=== PATIENT | female | born 1985 | race African-American/Black ===

== ENCOUNTER 2023-02-24 11:04 | Emergency (ER) | payer MEDICAID, SELFPAY ==
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
[2023-02-24 11:42] VITALS: BP 148/88; PULSE 76; RESP 19; TEMP 36.6; O2SAT 100; BMI 36.7
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
[2023-02-24 16:14] VITALS: BP 136/81; PULSE 74; RESP 18; O2SAT 100
== END 2023-02-24 16:15 | disposition home or self-care (01) ==
PROVIDERS: Emergency Provider Emergency Medicine; PCP Internal Medicine
DX: M48.02 Spinal stenosis, cervical region (principal); S16.1XXA Strain of muscle, fascia and tendon at neck level, initial encounter; V43.52XA Car driver injured in collision with other type car in traffic accident, initial encounter; M25.461 Effusion, right knee; M25.561 Pain in right knee; Y93.89 Activity, other specified; Y92.414 Local residential or business street as the place of occurrence of the external cause; Y99.0 Civilian activity done for income or pay
CPT/HCPCS: 72072; 72125; 73562; 99284

== ENCOUNTER 2024-03-01 15:33 | Outpatient (REF) | payer MEDICAID, SELFPAY ==
[2024-03-02 05:48] LABS: CT PCR NOT DETECTED (Not Detect.); NG PCR NOT DETECTED (Not Detect.)
[2024-03-02 11:11] LABS: Bacterial Vaginosis PCR POSITIVE (Negative); Candida Group PCR NOT DETECTED (Not Detect); Candida glab krusei PCR NOT DETECTED (Not Detect); Trichomonas vaginalis PCR NOT DETECTED (Not Detect)
== END 2024-03-01 15:34 | disposition home or self-care (01) ==
LOC: HO.CHCLNP 15:33
PROVIDERS: Visit Provider Internal Medicine
DX: N76.1 Subacute and chronic vaginitis (principal)
CPT/HCPCS: 0352U; 87491; 87591

== ENCOUNTER 2024-05-10 12:37 | Outpatient (REF) | payer MEDICAID, SELFPAY ==
[2024-05-10 16:15] LABS: MANUAL DIFF FLAG NO
[2024-05-10 16:32] LABS: Basophils Percent Auto 0.2 % (0-2); Eosinophils Absolute Auto 0.1 X10*3/uL (0.0-0.4); Eosinophils Percent Auto 1.1 % (0-4); Hematocrit 38.4 % (37.0-47.0); Hemoglobin 12.9 g/dl (12.0-16.0); Imm Gran Abs Auto 0.03 X10*3/uL (0.00-0.03); Imm Gran Pct Auto 0.3 % (0.0-0.4); Lymphocytes Absolute Auto 3.4 X10*3/uL (1.2-4.9); Lymphocytes Percent Auto 37.6 % (20-40); Mean Corpuscular HGB Conc 33.6 g/dl (31.0-35.0); Mean Corpuscular Hemoglobin 30.4 pg (27.0-33.0); Mean Corpuscular Volume 90.6 fL (80.0-98.0); Mean Platelet Volume 10.7 fL (9.4-12.3); Monocytes Absolute Auto 0.6 X10*3/uL (0.1-1.2); Monocytes Percent Auto 6.3 % (2-11); Neutrophils Absolute Auto 4.8 x10*3/uL (2.0-8.3); Neutrophils Percent Auto 54.5 % (45-73); Platelet Count 319 X10*3/uL (160-400); Red Blood Count 4.24 X10*6/uL (4.20-5.50); Red Cell Distribution Width 12.3 % (11.0-16.0); White Blood Count 8.9 X10*3/uL (4.8-10.8)
[2024-05-10 16:57] LABS: Alanine Aminotransferase 29 U/L (0-31); Alkaline Phosphatase 53 U/L (39-117); Anion Gap 7 (12-20); Aspartate Amino Transferase 24 U/L (5-31); Bilirubin Total 0.5 mg/dL (0.0-1.0); Blood Urea Nitrogen 8 mg/dL (9-16); Carbon Dioxide 26 mmol/L (22-29); Chloride 108 mmol/L (96-108); Estimated Glomerular Filt Rate > 60; Glucose Random 87 mg/dL (60-115); Iron 78 mcg/dL (30-160); Percent Iron Saturation 26 % (15-50); Potassium 3.9 mmol/L (3.3-5.1); Sodium 137 mmol/L (135-145); Total Iron Binding Capacity 301 mcg/dL (228-428); Unsaturated Iron Binding 223 ug/dL
[2024-05-10 17:05] LABS: Ferritin 208 ng/mL (10-122); Thyroid Stimulating Hormone 0.97 uIU/mL (0.32-4.0); Vitamin D 25-OH Total 53.5 ng/mL (>30)
[2024-05-10 17:19] LABS: Folate 11.8 ng/mL (> or = 4.0); Vitamin B12 719 pg/mL (200-900)
== END 2024-05-10 12:38 | disposition home or self-care (01) ==
LOC: HO.HHCL 12:37
PROVIDERS: Visit Provider Nurse Practitioner Psychiatric/Mental Health
DX: F90.0 Attention-deficit hyperactivity disorder, predominantly inattentive type (principal); F32.1 Major depressive disorder, single episode, moderate
CPT/HCPCS: 36415; 80053; 82306; 82607; 82728; 82746; 83540; 84443; 85025

== ENCOUNTER 2024-08-29 10:15 | Outpatient (REF) | payer MEDICAID, SELFPAY | END 2024-08-29 10:16 | disposition home or self-care (01) | LOC: HO.LNP 10:15 | PROVIDERS: Visit Provider Pediatrics | DX: Z01.419 Encounter for gynecological examination (general) (routine) without abnormal findings (principal) | CPT/HCPCS: 88175 ==

== ENCOUNTER 2024-08-29 10:34 | Outpatient (REF) | payer MEDICAID, SELFPAY ==
[2024-08-30 04:43] LABS: HIV AB/AG Nonreactive (Nonreactive); HIV Num 1 0.06 S/CO (0.00-0.99); ~HepC Num1 0.21 S/CO (0.00-0.79); ~Hepatitis C Antibody Nonreactive (Nonreactive)
== END 2024-08-29 10:35 | disposition home or self-care (01) ==
LOC: HO.CHCLDS 10:34
PROVIDERS: Visit Provider Pediatrics
DX: Z11.3 Encounter for screening for infections with a predominantly sexual mode of transmission (principal)
CPT/HCPCS: 36415; 86803; 87389; 88175

== ENCOUNTER 2024-08-29 15:05 | Outpatient (REF) | payer MEDICAID, SELFPAY ==
[2024-08-29 19:19] LABS: Bacterial Vaginosis PCR POSITIVE (Negative); Candida Group PCR NOT DETECTED (Not Detect); Candida glab krusei PCR NOT DETECTED (Not Detect); Trichomonas vaginalis PCR NOT DETECTED (Not Detect)
[2024-08-29 20:04] LABS: CT PCR NOT DETECTED (Not Detect.); NG PCR NOT DETECTED (Not Detect.)
== END 2024-08-29 15:06 | disposition home or self-care (01) ==
LOC: HO.CHCLNP 15:05
PROVIDERS: Visit Provider Pediatrics
DX: Z11.3 Encounter for screening for infections with a predominantly sexual mode of transmission (principal)
CPT/HCPCS: 81515; 87491; 87591

== ENCOUNTER 2024-09-12 15:25 | Outpatient (REF) | payer MEDICAID, SELFPAY ==
--- OUTSIDE RECORDS SUMMARY | 2024-09-12 17:22 | XMS_ITS | Encounter Summary ---
Author Organization [employer] Address [address] [facility] 7 [place] [address] Care Team Providers Care Surgical Assistant Name Role Phone Maryam Ojeda MD Primary Care Provider [phone]- [phone] Reason for Visit * Reason Onset Date Comments TB order 09/11/2024 Encounter Details Date Type Department Care Team (Late st Contact Info) Description 09/11/2024 Telephone [facility] MED[facility]INE [address] [place] [address] Maryam Ojeda MD [address] [place] [address] TB order Social History Tobacco Use Types Packs/Day Years Used Date Smoking Tobacco: Never Smokeless Tobacco: Never Depression Answer Date Recorded Patient Health Questionnaire-9 Score 9 02/01/2024 Patient Health Questionnaire-9 Score 9 02/01/2024 Last PHQ-9: Questionnaire Data Not on file 0 02/01/2024 Depression Answer Date Recorded Patient Health Questionnaire-2 Score 1 02/01/2024 Comments Unknown Sex and Gender Information Value Date Recorded Sex Assigned at Female 04/05/2022 10:18 AM EDT Legal Sex Female 10:18 AM EDT Gender Identity Female 04/05/2022 10:18 AM EDT Sexual Orientation Straight 04/05/2022 10 :18 AM EDT documented as of this encounter Miscellaneous Notes * Telephone Encounter - Felicia Renee RN - 09/11/2024 3:54 PM EDT T-spot ordered and patient notified to come into lab at her convince. * Telephone Encounter - Leonie Lygo - 09/11/2024 3:47 PM EDT Tc from pt requesting Tb test order. documented in this encounter Plan of Treatment Upcoming Encounters Date Type Department Care Team (Late st Contact Info) Description 12/06/2024 2:30 PM EDT Office Visit [facility] PEDS [address] [place] [address] Maryam Ojeda MD [address] [place] [address] Scheduled Orders Name Type Priority Associated Diagnoses Orde r Schedule T-SPOT??.TB Lab Routine Encounter for immunization Expected: 09/11/2024 (Approximate), Expires: 09/11/2025 documented as of this encounter Visit Diagnoses Diagnosis Encounter for immunization documented in this encounter Additional Health Concerns Assessment Noted Time PHQ-9 Depression Total Score: 9 02/01/20 24 10:39 AM EDT documented as of this encounter Care Teams Surgical Assistant Relationship Specialty Start Date End Date Maryam Ojeda MD [address] [place] [address] PCP - General Internal Medicine 07/06/13 documented as of this encounter
--- OUTSIDE RECORDS SUMMARY | 2024-09-12 17:22 | XMS_ITS | Encounter Summary ---
Author Organization [employer] Address [address] [place] [address] 7[address] [place] [address] Care Team Providers Care Reading Efficiency Course Director Name Role Phone Maryam Ojeda MD Primary Care Provider [phone]- [phone] Encounter Details Date Type Department Care Team (Late Contact Info) Description 04/16/2024 Orders Only [facility] MED & PEDS [address] [place], [place] [phone] Maryam Ojeda MD [address] [place] [address] Class 2 obesity due to excess calories without serious comorbidity with body mass index (BMI) of 38.0 to 38.9 in adult (Primary Dx) Social History Tobacco Use Types Packs/Day Years [...] AM EDT documented as of this encounter Plan of Treatment Upcoming Encounters Date Type Department Care Team (Late Contact Info) Description 12/06/2024 2:30 PM EDT Office Visit [facility] MED & PEDS [address] [place] [address] Maryam Ojeda MD [address] [place] [address] documented as of this encounter Visit Diagnoses Diagnosis Class 2 obesity due to excess calories without serious comorbidity with body mass index (BMI) of 38.0 to 38.9 in adult- Primary documented in this encounter Additional Health Concerns Assessment Noted Time PHQ-9 Depression Total Score: 9 02/01/20 24 10:39 AM EDT documented as of this encounter Care Teams Reading Efficiency Course Director Relationship Specialty Start Date End Date Maryam Ojeda MD [address] [place] [address] PCP - General Internal Medicine 07/06/13 documented as of this encounter
--- OUTSIDE RECORDS SUMMARY | 2024-09-12 17:22 | XMS_ITS | Encounter Summary ---
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) Social History Tobacco Use Types Packs/Day Years Used Date Smoking Tobacco: Never Assessed Comments Unknown Sex and Gender Information Value Date Recorded Sex Assigned at Female 04/05/2022 10:18 AM EDT Legal Sex Female 10:18 AM EDT Gender Identity Female 04/05/2022 10:18 AM EDT Sexual Orientation Straight 04/05/2022 10 :18 AM EDT documented as of this encounter Plan of Treatment Upcoming Encounters Date Type Department Care Team (Late Contact Info) Description 12/06/2024 2:30 PM EDT Office Visit [facility] PEDS [address] [place], [place] [phone] Maryam Ojeda MD [address] [place], [place] [phone] documented as of this encounter Visit Diagnoses Diagnosis Herpes simplex infection of genitourinary system- Primary documented in this encounter Care Teams Felt Tipping Machine Tender Relationship Specialty Start Date End Date Beauzile, Thevenin, MD [address] [place] [address] PCP - General Internal Medicine 07/06/13 documented as of this encounter
--- OUTSIDE RECORDS SUMMARY | 2024-09-12 17:22 | XMS_ITS | Encounter Summary ---
Author Organization [employer] Address [address] [place] [address] 7t [place] [address] Care Team Providers Care Driller'S Offsider Name Role Phone Maryam Ojeda MD Primary Care Provider [phone]- [phone] Reason for Visit * Reason Comments Med Refill Encounter Details Date Type Department Care Team (Late st Contact Info) Description 06/19/2024 Refill [facility]EDS [address] [place] [address] Sera Pandya MD [address] [place] [address] Class 2 obesity due to excess calories without serious comorbidity with body mass index (BMI) of 38.0 to 38.9 in adult Social History Tobacco Use Types Packs/Day Years [...] Description 12/06/2024 2:30 PM EDT Office Visit [facility] [address] [place] [address] Maryam Ojeda MD [address] [place] [address] documented as of this encounter Visit Diagnoses Diagnosis Class 2 obesity due to excess calories without serious comorbidity with body mass index (BMI) of 38.0 to 38.9 in adult documented in this encounter Additional Health Concerns Assessment Noted Time PHQ-9 Depression Total Score: 9 02/01/20 24 10:39 AM EDT documented as of this encounter Care Teams Driller'S Offsider Relationship Specialty Start Date End Date Maryam Ojeda MD [address] [place] [address] PCP - General Internal Medicine 07/06/13 documented as of this encounter
--- OUTSIDE RECORDS SUMMARY | 2024-09-12 17:22 | XMS_ITS | Encounter Summary ---
Author Organization [employer] Address [address] [place] [address] 7 [place] [address] Care Team Providers Care Training Instructor Name Role Phone Maryam Ojeda MD Primary Care Provider [phone]- [phone] Encounter Details Date Type Department Care Team ([facility] Contact Info) Description 06/19/2024 Orders Only [facility] MED & PEDS [address] [place] [address] Maryam Ojeda MD [address] [place] [address] Social History Tobacco Use Types Packs/Day Years [...] Upcoming Encounters Date Type Department Care Team ([facility] Contact Info) Description 12/06/2024 2:30 PM EDT Office Visit [facility] MED & PEDS [address] [place], [place] [phone] Maryam Ojeda MD [address] [place], [place] [phone] documented as of this encounter Visit Diagnoses Not on filedocumented in this encounter Additional Health Concerns Assessment Noted Time PHQ-9 Depression Total Score: 9 02/01/20 24 10:39 AM EDT documented as of this encounter Care Teams Training Instructor Relationship Specialty Start Date End Date Maryam Ojeda MD [address] [place] [address] [employer] [address] PCP - General Internal Medicine 07/06/13 documented as of this encounter
--- OUTSIDE RECORDS SUMMARY | 2024-09-12 17:22 | XMS_ITS | Encounter Summary ---
Author Organization [email or web address] Address [address] [place] [address] [address] [place] [address] Care Team Providers Care Electrical And Radio Aircraft Mechanic Name Role Phone Maryam Ojeda MD Primary Care Provider [phone]- [phone] Encounter Details Date Type Department Care Team ([facility] Contact Info) Description 10/20/2023 Telephone [facility] MEDICINE [address] [place], [place] [phone] Maryam Ojeda MD [address] [place], [place] [phone] Social History Tobacco Use Types Packs/Day Years Used Date Smoking Tobacco: Never Smokeless Tobacco: Never Comments Unknown Sex and Gender Information Value Date Recorded Sex Assigned at Female 04/05/2022 10:18 AM EDT Legal Sex Female 10:18 AM EDT Gender Identity Female 04/05/2022 10:18 AM EDT Sexual Orientation Straight 04/05/2022 10 :18 AM EDT documented as of this encounter Plan of Treatment Upcoming Encounters Date Type Department Care Team ([facility] Contact Info) Description 12/06/2024 2:30 PM EDT Office Visit [facility]EDS [address] [place], [place] [phone] Maryam Ojeda MD [address] [place], [place] [phone] documented as of this encounter Visit Diagnoses Not on filedocumented in this encounter Care Teams Electrical And Radio Aircraft Mechanic Relationship Specialty Start Date End Date Maryam Ojeda MD [address] [place] [address] PCP - General Internal Medicine 07/06/13 documented as of this encounter
--- OUTSIDE RECORDS SUMMARY | 2024-09-12 17:22 | XMS_ITS | Encounter Summary ---
Author Organization [employer] Address [address] [place] [address] Care Team Providers Care Die Polisher Name Role Phone Maryam Ojeda MD Primary Care Provider +1- [phone] Encounter Details Date Type Department Care Team ([facility] Contact Info) Description 03/25/2023 [facility] [employer] [address] [place], [place] [phone] Maryam Ojeda MD [address] [place] [address] Social History Tobacco Use Types Packs/Day Years [...] Upcoming Encounters Date Type Department Care Team ([facility] Contact Info) Description 12/06/2024 2:30 PM EDT Office Visit [facility] [address] [place], [place] [phone] Maryam Ojeda MD [address] [place], [place] [phone] documented as of this encounter Visit Diagnoses Not on filedocumented in this encounter Care Teams Die Polisher Relationship Specialty Start Date End Date Maryam Ojeda MD [address] [place] [address] PCP - General Internal Medicine 07/06/13 documented as of this encounter
--- OUTSIDE RECORDS SUMMARY | 2024-09-12 17:22 | XMS_ITS | Encounter Summary ---
Author Organization [employer] Address [address] [place] [address] [address] [place] [address] Care Team Providers Care Director Of Sustainability Programs Name Role Phone Maryam Ojeda MD Primary Care Provider +1- [phone] Reason for Visit * Reason Comments Med Refill Encounter Details Date Type Department Care Team (Late Contact Info) Description 10/19/2023 Refill [facility] MEDICINE [address] [place], [place] [phone] Maryam Ojeda MD [address] [place] [address] Herpes simplex infection of genitourinary system Social History Tobacco Use Types Packs/Day Years [...] Description 12/06/2024 2:30 PM EDT Office Visit [facility]S [address] [place], [place] [phone] Maryam Ojeda MD [address] [place] [address] documented as of this encounter Visit Diagnoses Diagnosis Herpes simplex infection of genitourinary system documented in this encounter Care Teams Director Of Sustainability Programs Relationship Specialty Start Date End Date Maryam Ojeda MD [address] [place] [address] PCP - General Internal Medicine 07/06/13 documented as of this encounter
--- OUTSIDE RECORDS SUMMARY | 2024-09-12 17:22 | XMS_ITS | Clinical Summary ---
Author Organization [employer] Address [address] [place] [address] 7[address] [place] [address] Care Team Providers Care Figure Refinisher And Repairer Name Role Phone Maryam Ojeda MD Primary Care Provider [phone] Allergies No known active allergies Medications Fluocinolone Acetonide Scalp 0.01 % oilIndications:Se borrheic dermatitis, unspecified APPLY THIN LAYER TO DAMP SCALP MASSAGE WELL + COVER. LEAVE ON FOR 4 HOURS OR OVERNIGHT THEN WASH OFF 118.28 mL 6 04/01/20 23 Active acetaminophen (Tylenol) 500 MG tablet Take 2 tablets (1,000 mg) by mouth every 6 (six) hours if needed for moderate pain or fever for up to 25 doses. 40 tablet 08/17/19 24 Active ibuprofen 400 MG tablet Take 1 tablet (400 mg) by mouth every 6 (six) hours if needed for moderate pain or fever for up to 30 doses. 30 tablet 08/17/19 24 Active Spacer/Aero-Holdi ng Chambers (OptiChamber Elena) misc 1 each every 4 (four) hours if needed (asthma). 1 each 08/17/19 24 Active albuterol (Ventolin HFA) 108 (90 Base) MCG/ACT inhaler INHALE 2 PUFFS EVERY 4 (FOUR) HOURS IF NEEDED FOR WHEEZING OR SHORTNESS OF BREATH. 18 g 1 10/14/19 24 Active ketoconazole (NIZOral) 2 % shampooIndication s:Seborrheic dermatitis, unspecified LATHER ONTO AFFECTED AREA(S), LEAVE IN PLACE FOR 5 MINUTES, THEN RINSE OFF WITH WATER- USE DAILY 120 mL 3 03/01/20 24 Active valACYclovir (Valtrex) 500 MG tabletIndications :Herpes simplex infection of genitourinary system TAKE 1 TABLET BY MOUTH EVERY DAY 30 tablet 1 05/07/20 24 Active amoxicillin-clavu lanate (Augmentin) 875-125 MG tablet Take 1 tablet by mouth 2 times daily. 14 tablet 05/10/20 24 Active beclomethasone (Beconase-AQ) 42 MCG/SPRAY nasal spray Administer 2 sprays into each nostril 2 times daily. Dose is for each nostril. 25 g 3 05/10/20 24 025 Active azelastine (Astelin) 0.1 % nasal spray Administer 1 spray into each nostril 2 times daily. Use in each nostril as directed 30 mL 12 05/10/20 24 Active mometasone (Nasonex) 50 MCG/ACT nasal spray Administer 2 sprays into each nostril Once per day. 17 g 05/10/20 24 025 Active Semaglutide-Weigh t Management (Wegovy) 1 MG/0.5ML solution auto-injectorIndi cations:Class 2 obesity due to excess calories without serious comorbidity with body mass index (BMI) of 38.0 to 38.9 in adult INJECT ONE PEN (=1 MG) SUBCUTANEOUSLY ONCE A WEEK 2 mL 05/16/20 24 Active Zepbound 2.5 MG/0.5ML solution auto-injector INJECT 0.5ML'S (2.5MG'S) SUBCUTANEOUSLY ONCE PER WEEK 2 mL 1 08/09/19 25 Active metroNIDAZOLE (Flagyl) 500 MG tablet Take 1 tablet (500 mg) by mouth 2 times daily for 7 days. 14 tablet 09/03/19 25 025 Active Problems Problem Noted Date Diagnosed Date Subacute maxillary sinusitis 05/10/2024 Assessment & Plan (05/10/2024 3:18 PM EST): Recurrent Rx Augmentin + Beclomethasone nasal spray (DC Flonase) + Tylenol prn Advised re vapor showers, NS use Start Astelin nasal spray and fu with PCP re chronic sinus congestion issues. Mild intermittent asthma without complication Allergic rhinitis 12/23/2011 Amenorrhea 12/23/2011 Cervical high risk human pap illomavirus (HPV) DNA test positive 12/23/2011 Genital herpes simplex 12/23/2011 Encounters Date Type Department Care Team Description 09/11/[address] [facility] [address] [place] [address] Maryam Ojeda MD TB order 09/06/2024 Telephone [facility] [address] [place] [address] Tianna Tran MD Results 09/02/2024 Orders Only [facility] [address] [place] [address] Tianna Tran MD 08/29/2024 9:45 AM EDT Procedure Visit [facility] [address] [place] [address] Tianna Tran MD Routine screening for STI (sexually transmitted infection) (Primary Dx); Encounter for gynecological examination (general) (routine) without abnormal findings 08/29/2024 Travel 08/17/2024 Population Health Risk Score [facility] () Department [address] [place] [phone] Provider, Population Health Generic 08/08/2024 Refill [facility] [address] [place] [address] Maryam Ojeda MD 06/19/2024 Orders Only [facility] [address] [place] [address] Maryam Ojeda MD 06/19/2024 Refill [facility] [address] [place] [address] Sera Pandya MD Class 2 obesity due to excess calories without serious comorbidity with body mass index (BMI) of 38.0 to 38.9 in adult 06/19/2024 Refill [facility] [address] [place] [address] Maryam Ojeda MD from Last 3 Months Immunizations Name Administration Dates Next Due Influenza Injectable Quadriv alant Preservative Free IIV4 MDCK 03/29/2023 Influenza injectable quadriv alent IIV4 with preservative 04/25/2019,04/25/2017 Influenza injectable quadriv alent preservative free 04/14/2021 Influenza, Split (incl. clair fied surface antigen) 02/15/2013 Influenza, seasonal, injecta ble, preservative free 02/23/2024 Pneumococcal Conjugate PCV 20 02/23/2024 Tdap 10/12/2022,09/18/2012,02/01/2012 Social History Tobacco Use Types Packs/Day Years Used Date Smoking Tobacco: Never Smokeless Tobacco: Never Tobacco Cessation:Counseling Given: Not Answered Depression Answer Date Recorded Patient Health Questionnaire-9 [...] Orientation Straight 04/05/2022 10 :18 AM EDT Last Filed Vital Signs Vital Sign Reading Time Taken Comments Blood Pressure 130/82 08/29/2024 10:02 AM EDT Pulse 72 08/29/2024 10:02 AM EDT Temperature 36.1 ??C (96.9 ??F) 08/29/2024 10:02 AM E DT Respiratory Rate 20 08/29/2024 10:02 AM EDT Oxygen Saturation 97% 05/10/2024 2:34 PM EST Inhaled Oxygen Concentration - - Weight 103 kg (228 lb) 08/29/2024 10:02 AM EDT Height 165.1 cm (5' 5 ) 08/29/2024 10:02 AM EDT Body Mass Index 37.94 08/29/2024 10:02 AM EDT Plan of Treatment Upcoming Encounters Date Type Department Care Team ([facility] st Contact Info) Description 12/06/2024 2:30 PM EDT Office Visit [facility] [address] [place] [address] Maryam Ojeda MD [address] [place], [place] [phone] Health Maintenance Due Date Last Done Comments Lipid Panel 1985 SDOH Screening 1987 Alcohol/Substance Use Screening 1999 Family Planning (PISQ) 2002 Hepatitis B Vaccines (1 of 3 - 19+ 3-dose series) 2006 COVID-19 Vaccine ( season) 2024 HPV/Cotest 05/24/2024 05/24/2019 Depression Monitoring 08/03/2024 02/01/2024, 024 Depression Screening 01/31/2025 02/01/2024, 02/01/20 24 Tobacco Screening 05/10/2025 05/10/2024 Cervical Cancer Screening 08/30/2027 Pap Smear 08/30/2027 08/29/2024 DTaP/Tdap/Td Vaccines (4 - Td or Tdap) 10/12/2032 10/12/2022, 09/18/2012, 02/01/2012 Zoster Vaccines (1 of 2) 2037 RSV Patients and Patients Aged 60 years or older (1 - 1-dose 75+ series) 2062 Influenza Vaccine Completed 02/23/2024, , 04/14/2021, Additional history exists Pneumococcal Vaccine: Pediatrics (0 to 5 Years) and At-Risk Patients (6 to 49) Years) Completed 02/23/2024 HIV Screening Completed 08/29/2024, 03/07, 03/25/2021, Additional history exists Hepatitis C Screening Completed 08/29/2024, 019 HIB Vaccines Aged Out No longer eligi ble based on patient's age to complete this topic HPV Vaccines Aged Out No longer eligi ble based on patient's age to complete this topic Hepatitis A Vaccines Aged Out No long er eligible based on patient's age to complete this topic IPV Vaccines Aged Out No longer eligi ble based on patient's age to complete this topic Meningococcal Vaccine Aged Out No amrit lay eligible based on patient's age to complete this topic RSV under 20 months Aged Out No longe r eligible based on patient's age to complete this topic Rotavirus Vaccines Aged Out No longer eligible based on patient's age to complete this topic Procedures Procedure Name Priority Date/Time Associated Diagnosis Comments HEPATITIS C AB W/REFL TO HCV RNA, QN, PCR Routine 08/29/2024 10:49 AM EDT Routine screening for STI (sexually transmitted infection) HIV 1/2 ANTIGEN/ANTIBODY, FOURTH GENERATION W/RFL Routine 08/29/2024 10:49 AM EDT Routine screening for STI (sexually transmitted infection) PAP SMEAR Routine 08/29/2024 10:18 AM EDT Encounter for gynecological examination (general) (routine) without abnormal findings CHLAMYDIA/N. GONORRHOEAE RNA, TMA, UROGENITAL Routine 08/29/2024 10:16 AM EDT Routine screening for STI (sexually transmitted infection) BACTERIAL VAGINOSIS PANEL Routine 08/29/2024 10:16 AM EDT Routine screening for STI (sexually transmitted infection) MINDA HISTORICAL HPV MRNA E6/E7 Routine 05/24/2019 9:46 AM EST from Last 3 Months or Most Recently Relevant to Health Maintenance Results * Hepatitis C Antibody with Reflex to HCV, RNA, Quantitative, Real-Time PCR (08/29/2024 10:49 AM EDT) Hepatitis C Antibody Nonreactive Nonreactive [facility] Comment:Antibodies to HCV no t detected; does not exclude early acuteHCV infection. Blood Venous blood specimen / Unknown 08/29/2024 10:49 AM EDT 08/29/2024 2:15 PM EDT us Tianna Tran MD LAB BLOOD ORDERABLES Final Re sult [facility] [address] [place] [phone] * HIV-1/2 Antigen and Antibodies, Fourth Generation, with Reflexes (08/29/2024 10:49 AM EDT) HIV AB/AG Nonreactive Nonreactive [facility] Comment:HIV-1 p24 Ag and/or HIV-1/HIV-2 Ab not detected.A test result that is nonreactive does not exclude thepossibility of exposure to or infection with HIV-1 and/orHIV-2. Nonreactive results in this assay for individualswith prior exposure to HIV-1 and/or HIV-2 may be due toantigen and antibody levels that are below the limit ofdetection of this assay.The [employer] HIV Ag/Ab Combo assay result andsupplemental assay results should be interpreted inconjunction with the patient's clinical presentation,history and other laboratory results. If the results areinconsistent with clinical evidence, additional testing issuggested to confirm the result. Blood Venous blood specimen / Unknown 08/29/2024 10:49 AM EDT 08/29/2024 2:15 PM EDT us Tianna Tran MD LAB BLOOD ORDERABLES Final Re sult [facility] [address] [place] [phone] * Pap Smear (08/29/2024 10:18 AM EDT) Swab Cervical swab / Unknown 08/29/2024 10:18 AM EDT 08/30/2024 6:05 AM EDT Narrative [facility] - 09/04/2024 10:18 AM EDT ----- ------- Name: Ford Hay ?Age/Sex: 39/F ? : 1985 Unit#: [id number] ?? Attend Dr: Tianna Tran MD ?Re08/29/24 ?Status: DEP REF ? Location: HO.LNP ?Disch: ? ----- ------- SPEC : [id number] ? RECD: 08/30/24 ? STATUS: ??SOUT ? REQ NUM: [id number] ? ROMELIA: 08/29/24-1018 ? SUBM DR: Tianna Tran MD ? ENTERED: ??08/30/24 ?SP TYPE: Pap Smr ?OTHR DR: ? ORDERED: ??Pap Smear ? Interpretation ?? Satisfactory for evaluation. ?? Negative for intraepithelial lesion or malignancy. ?? No endocervical cells seen. ?Clinical Information LMP: Previous PAP test:05/24/2019 Other surgery: Other history: ? Material Received ?? ThinPrep-Cervical ----- ------- Signed (signature on file) ERMIAS Robertson (ASCP) 09/04/24 1018 ? ----- ------- ? END OF REPORT ? us Tianna Tran MD LAB CYTOLOGY ORDERABLES Final Result [facility] [address] [place] [address] [phone] * (ABNORMAL) Bacterial Vaginosis Panel (08/29/2024 10:16 AM EDT) TRICHOMONAS VAGINALIS DETECTION BY PCR NOT DETECTED Not Detect [facility] BACTERIAL VAGINOSIS DETECTION BY PCR POSITIVE(A) Negative [facility] Comment:The BV organism targ ets of the Xpert Xpress MVP test can becommensal in women; Xpert Xpress MVP positive results forbacterial vaginosis should be considered in conjunction withother clinical and patient information to determine thedisease status. Organisms that are not detected by the XpertXpress MVP test have also been reported to be associatedwith BV and aerobic vaginitis.The Xpert Xpress MVP test performance has not been evaluatedin patients under the age of 14. TABITHA GROUP DETECTION BY PCR NOT DETECTED Not Detect [facility] Tabitha glab krusei PCR NOT DETECTED Not Detect [facility] Swab Vaginal structure / Unknown 08/29/2024 10:16 AM EDT 08/29/2024 6:04 PM EDT us Tianna Tran MD LAB MICROBIOLOGY - GENERAL OR DERABLES Final Result [facility] [address] [place] [phone] * Chlamydia/N. Gonorrhoeae RNA, TMA, Urogenitial (08/29/2024 10:16 AM EDT) CT PCR NOT DETECTED Not Detect. [facility] Comment:A not detected test result does not exclude the possibilityof infection because test results can be affected byimproper specimen collection, concurrent antibiotic therapy,or the number of organisms in the specimen which may bebelow the sensitivity of the test. As with many diagnostictests, results from the Xpert CT/NG assay should beinterpreted in conjunction with other laboratory andclinical data available to the clinician.Xpert CT/NG performance has not been evaluated in patientsless than 14 years of age. The assay should not be used forthe evaluationof suspected sexual abuse or for other medico-legalindications. Additional testing is recommended in anycircumstance when false positive or false negative resultscould lead to adverse medical, social or psychologicalconsequences. NG PCR NOT DETECTED Not Detect. [facility] Comment:A not detected test result does not exclude the possibilityof infection because test results can be affected byimproper specimen collection, concurrent antibiotic therapy,or the number of organisms in the specimen which may bebelow the sensitivity of the test. As with many diagnostictests, results from the Xpert CT/NG assay should beinterpreted in conjunction with other laboratory andclinical data available to the clinician.Xpert CT/NG performance has not been evaluated in patientsless than 14 years of age. The assay should not be used forthe evaluationof suspected sexual abuse or for other medico-legalindications. Additional testing is recommended in anycircumstance when false positive or false negative resultscould lead to adverse medical, social or psychologicalconsequences. Swab (Vaginal Swab) 08/29/2024 10:16 AM EDT 08/29/2024 6:04 PM EDT Narrative [facility] - 08/29/2024 8:04 PM EDT Vaginal us Tianna Tran MD LAB MICROBIOLOGY - GENERAL OR DERABLES Final Result [facility] [address] [place] [phone] * HPV mRNA E6/E7 (05/24/2019 9:46 AM EST) HPV mRNA E6/E7 Not Detected NOT DETECTED [facility] Comment: This test was performed using the APTIMA(R) HPV Assay ([employer] This assay detects E6/E7 viral messenger RNA (mRNA) from 14 high-risk HPV types (16,18,31,33,35,39,45,51, 52,56,58,59,66,68). For additional information please refer to: http://education.TableGrabber.Cellfire/faq/CLP533q1 (This link is being provided for informational/ educational purposes only.) The analytical performance characteristics of this assay have been determined by [employer] [place], [place]. The modifications have not been cleared or approved by the FDA. This assay has been validated pursuant to the CLIA regulations and is used for clinical purposes. Test Performed by [facility] [employer] [place], [address] [place] [address] Cristian Alicia M.D., Ph.D., Director of Laboratories , CLIA [id number] Please note: ??Effective 02/16/2016, HPV testing will be performed using [employer]'s APTIMA test which targets mRNA. Detecting mRNA instead of DNA, as in older methods, offers significant improvements in specificity. 05/24/2019 9:46 AM EST Tianna Tran MD HISTORICAL/NON ORDERABLE LABS Final Result [facility] [address] from Last 3 Months or Most Recently Relevant to Health Maintenance Insurance [employer] Care Teams Figure Refinisher And Repairer Relationship Specialty Start Date End Date Maryam Ojeda MD [address] [place] [address] PCP - General Internal Medicine 07/06/13
--- OUTSIDE RECORDS SUMMARY | 2024-09-12 17:22 | XMS_ITS | Encounter Summary ---
Author Organization [employer] [facility] Address [address] [place] [address] [place] [address] Care Team Providers Care Teacher Of The Hearing Impaired Name Role Phone Maryam Ojeda MD Primary Care Provider [phone] Encounter Details Date Type Department Care Team (Late Contact Info) Description 06/24/2022 Orders Only [facility] [address] [place] [address] Milagro Walton LPN Social History Tobacco Use Types Packs/Day Years [...] 12/06/2024 2:30 PM EDT Office Visit [facility] [address] [place] [address] Maryam Ojeda MD [address] [place] [address] documented as of this encounter Visit Diagnoses Not on filedocumented in this encounter Care Teams Teacher Of The Hearing Impaired Relationship Specialty Start Date End Date Maryam Ojeda MD [address] [place] [address] PCP - General Internal Medicine 07/06/13 documented as of this encounter
[2024-09-15 10:10] LABS: TS Negative Control Passed; TS Panel A 0; TS Panel B 0; TS Positive Control Passed; TSpotTB Negative (Negative)
== END 2024-09-12 15:26 | disposition home or self-care (01) ==
LOC: HO.CHCLDS 15:25
PROVIDERS: Visit Provider Internal Medicine
DX: Z23 Encounter for immunization (principal)
CPT/HCPCS: 36415; 86481

== ENCOUNTER 2025-01-16 13:12 | Outpatient (REF) | payer MEDICAID, SELFPAY ==
--- OUTSIDE RECORDS SUMMARY | 2025-01-16 13:44 | XMS_ITS | Encounter Summary ---
Author Organization [employer] Address [address] [place] [id number] Care Team Providers Care Sales Agent [employer] Name Role Phone Maryam Ojeda MD Primary Care Provider [phone] Encounter Details Date Type Department Care Team ([facility] st Contact Info) Description 06/24/2022 Orders Only [facility] [address] [place] [address] Milagro Walton LPN Social History Tobacco Use Types Packs/Day Years Used Date Smoking Tobacco: Never Assessed Comments Unknown Sex and Gender Information Value Date Recorded Sex Assigned at Female 04/05/2022 10:18 AM EDT Legal Sex Female 10:18 AM EDT Gender Identity Female 04/05/2022 10:18 AM EDT Sexual Orientation Straight 04/05/2022 10 :18 AM EDT documented as of this encounter Plan of Treatment Not on file documented as of this encounter Visit Diagnoses Not on filedocumented in this encounter Care Teams Sales Agent [employer] Insurance Relationship Specialty Start Date End Date aMryam Ojeda MD [address] [place] [address] PCP - General Internal Medicine 07/06/13 documented as of this encounter
[2025-01-16 17:01] LABS: Cholesterol 189 mg/dL (<200); HDL Cholesterol 47 mg/dL (>40); Triglycerides 75 mg/dL (<150)
== END 2025-01-16 13:13 | disposition home or self-care (01) ==
LOC: HO.HHCL 13:12
PROVIDERS: PCP Internal Medicine; Visit Provider Internal Medicine Geriatric Medicine
DX: Z00.00 Encounter for general adult medical examination without abnormal findings (principal)
CPT/HCPCS: 36415; 80061